=== PATIENT | female | born 1975 | race Caucasian/White ===

== ENCOUNTER → 2019-11-27 | Outpatient (CLI) | payer OTHER ==
[~2019-11-27] MED LIST: MULT1CAP54 PO; OMEP20TA33 PO; PROP60CA36 PO
--- NOTE | 2019-11-27 11:40 | Diagnostic Imaging Report ---
PROCEDURE: CT urinary tract, rule out kidney stone. TECHNIQUE: Multiple contiguous axial images were obtained through the abdomen and pelvis without the use of intravenous contrast. Auto Exposure Controls were utilized during the CT exam to meet ALARA standards for radiation dose reduction. INDICATION: Left flank pain. Left ureteral stone. COMPARISON: No prior CT is available for comparison. FINDINGS: Absence of intravenous contrast decreases sensitivity for detection of focal lesions and vascular pathology. LOWER THORAX: Lung bases are clear. Visualized heart is normal in size. LIVER: Normal. GALLBLADDER: Physiologically distended. No calcified gallstones, pericholecystic fluid or gallbladder wall thickening BILE DUCTS: No biliary ductal dilatation. SPLEEN: Normal. PANCREAS: Normal. No pancreatic ductal dilatation. ADRENAL GLANDS: No nodules. KIDNEYS AND URETERS: There is mild left hydronephrosis, with dilatation of the proximal ureter up to the level of a calculus or multiple small calculi with a conglomerate measurement of 7 mm in greatest craniocaudal diameter. Left ureter is decompressed distal to this. There is also a nonobstructing calyceal calculus in the lower pole collecting system of the left kidney, with additional punctate calyceal calculi demonstrated in the upper and lower pole on the left. There is no hydronephrosis on the right. There is suggestion of a punctate calyceal calculus in the lower pole collecting system of the right kidney. The visualized right ureter is normal. STOMACH AND BOWEL: The patient is status post gastric bypass surgery. There is a small hiatal hernia. No bowel obstruction. No inflammatory changes. APPENDIX: Normal. PELVIC ORGANS/BLADDER: Bladder is normal. No focal bladder wall thickening or bladder calculus is demonstrated. Uterus demonstrates a normal CT appearance. No adnexal masses. Multiple phleboliths are demonstrated in the pelvis. PERITONEUM AND RETROPERITONEUM: No pneumoperitoneum. No abdominal free fluid or loculated collection. LYMPH NODES: No lymphadenopathy. VESSELS: Abdominal aorta is nonaneurysmal. ABDOMINAL WALL: Unremarkable. BONES: Multilevel degenerative changes involve the spine. No acute osseous abnormality. IMPRESSION: There is a 7 mm calculus or collection of small calculi in the mid left ureter, which causes mild left hydroureteronephrosis. Additional nonobstructing calyceal calculi are demonstrated in both kidneys, as detailed above. There is no hydroureteronephrosis on the right. Otherwise, no acute abdominal or pelvic pathology is appreciated. Dictated by: Dictated on workstation # [id number]
== END ==
LOC: RAD 11:08
PROVIDERS: ATTEND Urology
DX: N20.1 Calculus of ureter (principal)
CPT/HCPCS: 74176

== ENCOUNTER → 2019-11-27 | Outpatient (CLI) | payer OTHER ==
--- NOTE | 2019-11-27 09:27 | Diagnostic Imaging Report ---
INDICATION: Hematuria. Renal calculus. COMPARISON: None FINDINGS: 2 frontal radiographic views of the abdomen were obtained. Small bowel loops are nondistended. Moderate colonic air and stool is noted. Multiple well-circumscribed extraosseous calcifications are noted projecting over the pelvis. No unexpected radiopaque foreign bodies are seen. Osseous structures show no acute abnormalities. IMPRESSION: 1. Large amount of colonic air and stool. Please correlate for constipation. 2. Probable pelvic phleboliths, although distal ureteral calculi cannot be entirely excluded. Correlation with CT may be of benefit. Dictated by: Dictated on workstation # [id number]
== END ==
LOC: RAD 09:05
PROVIDERS: ATTEND Urology
DX: N20.2 Calculus of kidney with calculus of ureter (principal)
CPT/HCPCS: 74018

== ENCOUNTER 2019-12-03 05:39 | Outpatient (RCR) | payer OTHER ==
[~2019-12-03] VITALS: Ht 160 cm; Wt 81.3 kg
== END 2019-12-03 12:50 | disposition home or self-care (01) ==
LOC: PREOP 05:39
PROVIDERS: ATTEND Urology
DX: Z01.818 Encounter for other preprocedural examination (principal)

== ENCOUNTER 2019-12-08 08:27 | Day surgery (SDC) | payer OTHER ==
[2019-12-08] VITALS (9 sets, daily range): BP systolic 102–123; BP diastolic 65–90
[~2019-12-08] VITALS: Ht 160 cm; Wt 81.3 kg
--- NOTE | 2019-12-08 07:10 | Progress Note-Pre Operative ---
Pre-Operative Progress Note H&P Reviewed The H&P was reviewed, patient examined and no changes noted. Date Seen by Provider: Dec 08, 2019 Time Seen by Provider: 08:42 Date H&P Reviewed: Dec 08, 2019 Time H&P Reviewed: 08:42 Pre-Operative Diagnosis: LT MID URETERAL STONE HENRY GONZALEZ MD Dec 08, 2019 07:10
[2019-12-08] MEDS ORDERED: LACTATED RINGERS 1,000 ML IV PRN (08:42)
[2019-12-08] MEDS ORDERED: cefTRIAXone FOR IV USE 1,000 MG in WATER (STERILE) FOR INJECTION 10 ML IV ONE (08:45)
[2019-12-08] MEDS ORDERED: cefTRIAXone 1,000 MG IV (ROCEPHIN) VIAL ONE (08:48)
[2019-12-08] MEDS ORDERED: WATER (STERILE) FOR INJECTION 10 ML ONE (08:49)
[2019-12-08] MEDS ORDERED: TRM50T PO (08:53)
--- OUTSIDE RECORDS SUMMARY | 2019-12-08 09:02 | XMS REPORT | Continuity of Care Document ---
Author Organization Unknown Address Unknown Phone Unavailable Allergies Active Description Code Type Severity Reaction Onset Reported/Identified Relationship to Patient Clinical Status Yes Penicillins [id number] Drug Aller gy Mild RASH/HIVES 12/01/2019 Medications There is no data. Problems Date Dx Coded Attending Type Code Diagnosis Diagnosed By 12/01/2019 LISA DIALLO, HENRY Allen Ot N20.2 CALCULUS OF KIDNEY WITH CALCULUS OF URET 12/01/2019 HENRY GONZALEZ MD Ot N20.1 CALCULUS OF URETER Procedures There is no data. Results There is no data. Encounters ACCT No. Visit Date/Time Discharge Status Pt. Type Provider Facility Loc./Unit Complaint [id number] 12/03/2019 05:39:00 12:50:00 DIS Outpatient HENRY GONZALEZ MD [facility] PREOP LEFT URETERAL STONE [id number] 11/27/2019 11:08:00 23:59:59 CLS Outpatient HENRY GONZALEZ MD [facility] RAD LT URETERAL STONE W/ PA IN [id number] 11/27/2019 09:05:00 23:59:59 CLS Outpatient HENRY GONZALEZ MD [facility] RAD LT URETUR STONE [id number] 12/08/2019 08:00:00 P EN Preadmit HENRY GONZALEZ MD [facility] SDC LEFT URETERAL STONE
--- NOTE | 2019-12-08 09:26 | Progress Note-Post Operative ---
Post-Operative Progess Note Surgeon (s)/Note Taker (s) Surgeon HENRY GONZALEZ MD Note Taker: NONE Pre-Operative Diagnosis LT MID URETERAL STONE Post-Operative Diagnosis SAME Procedure & Operative Findings Date of Procedure 12/08/19 Procedure Performed/Findings CYSTOSCOPY, LT URETEROSCOPY, LT URETERAL CATHETER AND RETROGRADE UROGRAM, AND LT ESWL Anesthesia Type GENERAL Estimated Blood Loss Estimated blood loss (mL): NONE Specimens/Packing Specimens Removed NONE Packing: NONE HENRY GONZALEZ MD Dec 08, 2019 09:25
--- NOTE | 2019-12-08 09:27 | Discharge Inst-Urology ---
Discharge Inst-Urology Reconcile Patient Problems Problems Reviewed?: Yes Final Diagnosis LT MID URETERAL STONE Patient Instructions/Follow Up Plan/Assessment/Instructions Please make appointment to been seen in office in 4 weeks. Post ESWL instructions Increase oral fluids for 48 hours and then as needed. Diet and Activity as tolerated. If questions or concerns contact your physician Or seek help at emergency department. HENRY GONZALEZ MD Dec 08, 2019 09:27
[2019-12-08] MEDS ORDERED: MIDAZOLAM 2 MG/2 ML (VERSED) VIAL ONE (09:31)
[2019-12-08] MEDS ORDERED: ONDANSETRON 4 MG/2 ML (SDV) Z0FRAN ONE (09:31)
[2019-12-08] MEDS ORDERED: fentaNYL INJECTION 100 MCG/2 ML AMP ONE (09:31)
[2019-12-08] MEDS ORDERED: LIDOCAINE PF 2% 5 ML (XYLOCAINE) VIAL ONE (09:31)
[2019-12-08] MEDS ORDERED: proPOfol 200 MG/20 ML (DIPRIVAN) VIAL IV ONE (09:31)
[2019-12-08] MEDS ORDERED: FUROSEMIDE 40 MG/4 ML INJ (LASIX) ONE (09:32)
[2019-12-08] MEDS ORDERED: SEVOFLURANE (ULTANE) 15 ML INHAL SOLN ONE ×4 (09:32→10:44)
[2019-12-08] MEDS ORDERED: IOPAMIDOL 61% 30 ML (ISOVUE 300) VIAL ONE (10:01)
--- NOTE | 2019-12-08 10:12 | Diagnostic Imaging Report ---
INDICATION: History of left kidney stones and ureteral stone. COMPARISON: CT scan of 11/27/2019. FINDINGS: There is a 5 mm calculus in a lower pole calyx of the left kidney. There are several calcifications in the pelvis which are round and most appear to be phleboliths. I could not exclude a small distal left ureteral stone at this time. The right kidney and ureter appear normal. IMPRESSION: 1. Small calculus overlying the lower pole of the left kidney. 2. Multiple calcifications in the pelvis, most of which appear to be phleboliths; however, I could not exclude a small distal left ureteral stone. Dictated by: Dictated on workstation # [id number]
--- NOTE | 2019-12-08 10:54 | Anesthesia-General Post-Op ---
General Patient Condition Mental Status/LOC: Same as Preop Cardiovascular: Satisfactory Nausea/Vomiting: Absent Respiratory: Satisfactory Pain: Controlled Complications: Absent Post Op Complications Complications None Follow Up Care/Instructions Patient Instructions None needed. Anesthesia/Patient Condition Patient Condition Patient is doing well, no complaints, stable vital signs, no apparent adverse anesthesia problems. No complications reported per nursing. ONUR OSORIO CRNA Dec 08, 2019 10:54
[2019-12-08] MEDS ORDERED: ONDANSETRON 4 MG/2 ML (SDV) Z0FRAN IVP PRN (11:00)
[2019-12-08] MEDS ORDERED: morphine INJ 10 MG/ML 1ML (SYR OR VIAL) IVP ONE (11:00)
[2019-12-08] MEDS ORDERED: PHEN-640 PO (12:01)
[2019-12-08] MEDS ORDERED: TRAM50TA3 PO (12:01)
[2019-12-08] MEDS ORDERED: NITR-65 PO (12:01)
--- NOTE | 2019-12-08 13:37 | OPERATIVE REPORT ---
DATE OF SERVICE: 12/08/2019 PREOPERATIVE DIAGNOSIS: Left mid ureteral stones. POSTOPERATIVE DIAGNOSIS: Left mid ureteral stones. OPERATION PERFORMED: Cystoscopy, left ureteroscopy, insertion of left ureteral catheter and retrograde urogram with ESWL. SURGEON: Jakob Gonzalez MD ANESTHESIA: General. COMPLICATIONS: None. DESCRIPTION OF PROCEDURE: Under satisfactory general anesthesia, the patient in lithotomy position on the cystoscopy table, genitalia were prepped and draped in the usual sterile fashion. Cystoscope was introduced under vision. The bladder was essentially normal except that the ureteral orifice was kind of tight. I was able to dilate it to accommodate a 6.9 Egyptian semirigid ureteroscope; however, it was not going easily and I did not want to hurt the ureter, so I removed the ureteroscope, reinserted the cystoscope, passed a 5-Egyptian ureteral catheter into the ureter and injected contrast and we could see two filling defect in the mid ureter as described by the CAT scan. We left ureteral catheter in and taped it. Moved the patient on the ESWL table supine and with the help of contrast, we were able to localize the stones first the distal one, broke it up with a kV of 7 and then the proximal one. We could not see any more filling defects and the contrast was flowing rapidly and quickly. No problem on the area. The patient received 30 mg of Toradol and 40 mg of Lasix IV. We gave her a total of 2500 shocks. She tolerated the procedure and anesthesia well and was sent to recovery room in stable condition after removing the catheter. Job ID: [id number] DocumentID: [id number] Dictated Date: 12/08/2019 10:48:09 Sugar Reprocess Operator Head Date: 12/08/2019 13:36:25 Dictated By: JAKOB GONZALEZ MD
== END 2019-12-08 12:35 | disposition home or self-care (01) ==
LOC: SDC 08:27
PROVIDERS: ATTEND Urology
DX: N13.2 Hydronephrosis with renal and ureteral calculous obstruction (principal); K21.9 Gastro-esophageal reflux disease without esophagitis; G43.909 Migraine, unspecified, not intractable, without status migrainosus; Z79.899 Other long term (current) drug therapy; Z87.891 Personal history of nicotine dependence; Z98.84 Bariatric surgery status; Z88.0 Allergy status to penicillin; Z11.2 Encounter for screening for other bacterial diseases
CPT/HCPCS: 52353; 74018; 76000; 84703; 87081; U0002; 87635